=== PATIENT | male | born 1980 | race Caucasian/White ===

== ENCOUNTER 2016-08-27 11:47 | Outpatient (CLI) | payer BC ==
[2014-08-26 08:29] VITALS: BP 142/87
[2016-08-27 12:03] LABS: BASOPHILS % 1.1 (0.0-1.5); EOSINOPHILS % 7.2 % (0.0-6.8); MEAN CORPUSCULAR HEMOGLOBIN 28.4 pg (28.0-34.0); MEAN CORPUSCULAR VOLUME 84.7 fl (80.0-100.0); MONOCYTES % 3.3 % (0.0-11.0); NEUTROPHILS # 4.4 # k/uL (1.4-7.7)
[2016-08-27 23:50] LABS: TOTAL PROTEIN 7.6 g/dL (6.0-8.5)
== END 2016-08-27 11:50 ==
LOC: LAB 11:47
PROVIDERS: ATTEND Family Medicine
DX: R53.82 Chronic fatigue, unspecified (principal); E78.00 Pure hypercholesterolemia, unspecified
CPT/HCPCS: 36415; 80053; 80061; 84403; 85025

== ENCOUNTER 2017-12-06 16:10 | Outpatient (CLI) | payer BC ==
[2014-08-26 08:29] VITALS: BP 142/87
== END 2017-12-06 16:11 ==
LOC: LABRHC 16:10
PROVIDERS: ATTEND Family Medicine
DX: R30.0 Dysuria (principal)
CPT/HCPCS: 87086

== ENCOUNTER 2018-01-28 15:35 | Outpatient (CLI) | payer BC ==
[2014-08-26 08:29] VITALS: BP 142/87
== END 2018-01-28 15:45 ==
LOC: LABRHC 15:35
PROVIDERS: ATTEND Physician Assistant
DX: R30.0 Dysuria (principal)
CPT/HCPCS: 87086